=== PATIENT | male | born 1955 | race Caucasian/White ===

== ENCOUNTER → 2022-08-06 | Outpatient (CLI) | payer MEDICARE ==
[~2022-08-06] MED LIST: CATAFLAM50 MG PO; CLARITIN10 MG PO; HYDROCHLOROTHIA25 M1 PO; MEDROL DOSEPAK4 MG PO; MELOXICAM15 MG PO; ROBAXIN500 MG PO; SIMVASTATIN10 MG PO; SYMB80 INH; VENT7GM INH; VICODIN 500 MG-1 TAB PO
[2022-08-06 17:58] LABS: BUN 12 mg/dl (9-23); CHLORIDE 103 mmol/L (98-107); POTASSIUM 3.9 mmol/L (3.4-5.1)
== END | disposition home or self-care (01) ==
LOC: LAB 17:21
PROVIDERS: ATTEND Nurse Practitioner Family
DX: N18.9 Chronic kidney disease, unspecified (principal)

== ENCOUNTER → 2022-08-07 | Outpatient (CLI) | payer MEDICARE | END | disposition home or self-care (01) | LOC: CT 00:02 | PROVIDERS: ATTEND Nurse Practitioner Family | DX: R51.9 Headache, unspecified (principal) ==

== ENCOUNTER → 2023-05-18 | Outpatient (CLI) | payer MEDICARE | END | disposition home or self-care (01) | LOC: CT 03:25 | PROVIDERS: ATTEND Nurse Practitioner Family | DX: J44.9 Chronic obstructive pulmonary disease, unspecified (principal); R91.8 Other nonspecific abnormal finding of lung field; F17.210 Nicotine dependence, cigarettes, uncomplicated ==

== ENCOUNTER → 2023-08-04 | Outpatient (CLI) | payer MEDICARE ==
[~2023-08-04] MED LIST changes: +CIPRO500 MG PO; +METOPROLOL SUCC25 M2 PO; +METRONIDAZOLE500 M1 PO; +VITAMIN D350 MCG PO; +ZYRTEC10 M2 PO
[2023-08-04 07:38] LABS: BASO # 0.1 10*3/uL (0.0-0.1); BASO % 0.9 % (0.0-1.0); EOS # 0.2 10*3/uL (0.0-0.4); EOS % 2.6 % (1.0-4.0); HEMATOCRIT 45.6 % (42.0-52.0); LYMPH # 1.7 10*3/uL (1.3-4.4); MEAN CELL VOLUME 97.4 fl (80.0-94.0); MEAN CORPUSCULAR HGB CONC 31.8 g/dl (33.0-37.0); MEAN PLATELET VOLUME 9.7 fl (9.6-12.3); MONO # 0.7 10*3/uL (0.1-1.0); NEUT # 4.9 10*3/uL (2.3-7.9); NEUT % 64.1 % (47.0-73.0); PLATELET COUNT AUTOMATED 363 10*3/uL (130-400); RED BLOOD COUNT 4.68 10*6/uL (4.50-5.90); RED CELL DISTRI WIDTH 13.8 % (0-14.5); WHITE BLOOD COUNT 7.6 10*3/uL (4.8-10.8)
[2023-08-04 08:05] LABS: ALKALINE PHOSPHATASE 73 U/L (46-116); BUN 12 mg/dl (9-23); CHLORIDE 105 mmol/L (98-107); POTASSIUM 4.1 mmol/L (3.4-5.1); SGPT/ALT 29 U/L (5-49); TOTAL PROTEIN 6.6 gm/dL (6.0-8.0)
== END | disposition home or self-care (01) ==
LOC: LAB 00:08
PROVIDERS: ATTEND Internal Medicine
DX: R10.9 Unspecified abdominal pain (principal); R73.9 Hyperglycemia, unspecified; D72.829 Elevated white blood cell count, unspecified

== ENCOUNTER → 2024-04-17 | Outpatient (CLI) | payer MEDICARE ==
[~2024-04-17] MED LIST changes: +ASPIRIN ADULT L81 M1 PO; +BENZONATATE100 M1 PO; +HALLS7.6 MG PO; +LEVOFLOXACIN750 M2 PO; +METOPROLOL SUCC50 M1 PO; +PREDNISONE10 MG PO
== END | disposition home or self-care (01) ==
LOC: US 10:00
PROVIDERS: ATTEND Nurse Practitioner Family
DX: I82.611 Acute embolism and thrombosis of superficial veins of right upper extremity (principal); M79.89 Other specified soft tissue disorders

== ENCOUNTER → 2024-05-04 | Outpatient (CLI) | payer MEDICARE ==
[2024-05-04 17:48] LABS: BASO # 0.1 10*3/uL (0.0-0.1); BASO % 0.4 % (0.0-1.0); EOS # 0.4 10*3/uL (0.0-0.4); EOS % 2.3 % (1.0-4.0); HEMATOCRIT 39.9 % (42.0-52.0); MEAN CELL VOLUME 99.8 fl (80.0-94.0); MEAN CORPUSCULAR HGB 30.3 pg (27.0-31.0); MEAN CORPUSCULAR HGB CONC 30.3 g/dl (33.0-37.0); MEAN PLATELET VOLUME 10.5 fl (9.6-12.3); MONO # 1.2 10*3/uL (0.1-1.0); MONO % 7.9 % (3.0-9.0); NEUT # 11.7 10*3/uL (2.3-7.9); NEUT % 74.6 % (47.0-73.0); PLATELET COUNT AUTOMATED 240 10*3/uL (130-400); RED CELL DISTRI WIDTH 15.4 % (0-14.5); WHITE BLOOD COUNT 15.7 10*3/uL (4.8-10.8)
[2024-05-04 18:03] LABS: ALKALINE PHOSPHATASE 79 U/L (46-116); BUN 15 mg/dl (9-23); CHLORIDE 102 mmol/L (98-107); CHOLESTEROL 186 mg/dL (<200); LDL CHOLESTEROL 98 mg/dL (9-159); POTASSIUM 4.2 mmol/L (3.4-5.1); SGPT/ALT 59 U/L (5-49); TOTAL PROTEIN 6.9 gm/dL (6.0-8.0); TRIGLYCERIDES 227 mg/dl (<150)
== END | disposition home or self-care (01) ==
LOC: ZRHCWE 17:06
PROVIDERS: ATTEND Nurse Practitioner Family
DX: Z13.1 Encounter for screening for diabetes mellitus (principal); Z13.228 Encounter for screening for other metabolic disorders; Z12.5 Encounter for screening for malignant neoplasm of prostate; Z13.29 Encounter for screening for other suspected endocrine disorder; Z13.0 Encounter for screening for diseases of the blood and blood-forming organs and certain disorders involving the immune mechanism; I10 Essential (primary) hypertension; I26.99 Other pulmonary embolism without acute cor pulmonale; J44.9 Chronic obstructive pulmonary disease, unspecified

== ENCOUNTER 2024-05-10 01:44 | Emergency (ER) | payer MEDICARE ==
[~2024-05-10] VITALS: Ht 175.2 cm; Wt 102.5 kg
[2024-05-10] MEDS ORDERED: TRIAMCINOLONE ACETONIDE 40 MG/ML VIAL IM ONE (02:00)
[2024-05-10] MEDS ORDERED: diphenhydrAMINE hydrochloride 50 MG/ML VIAL IV ONE (02:00)
[2024-05-10] MEDS ORDERED: SODIUM CHLORIDE 0.9% 500 ML IV ONE (02:00)
[2024-05-10] MEDS ORDERED: FAMOTIDINE 20 MG TAB PO ONE ×2 (02:00→02:15)
[2024-05-10] MEDS ORDERED: Dexamethasone Sodium Phospha 20 MG/5 ML VIAL IV ONE (02:00)
[2024-05-10] MEDS ORDERED: FAMOTIDINE 50 ML IV ONE (02:00)
[2024-05-10] MEDS ORDERED: PEPCID40 MG PO (02:08)
[2024-05-10] MEDS ORDERED: ZYRTEC10 M2 PO (02:08)
== END 2024-05-10 03:41 | disposition home or self-care (01) ==
LOC: ED 01:44
DX: T78.3XXA Angioneurotic edema, initial encounter (principal); K14.8 Other diseases of tongue; T45.515A Adverse effect of anticoagulants, initial encounter; Z88.5 Allergy status to narcotic agent; Z79.899 Other long term (current) drug therapy; Z79.82 Long term (current) use of aspirin; Z90.49 Acquired absence of other specified parts of digestive tract; Z98.890 Other specified postprocedural states; Z87.891 Personal history of nicotine dependence; Y92.89 Other specified places as the place of occurrence of the external cause